=== PATIENT | male | born 1995 | race Caucasian/White ===

== ENCOUNTER 2021-09-29 12:20 | Emergency (ER) | payer SELFPAY ==
[~2021-09-29] VITALS: Ht 175.3 cm; Wt 72.7 kg
[2021-09-29 12:45] VITALS: TEMP 98.4
[2021-09-29] MEDS ORDERED: FLEXERIL 1010 MG/TAB PO (13:42)
[2021-09-29 14:15] VITALS: BP 117/79; PULSE 70
== END 2021-09-29 14:15 | disposition home or self-care (01) ==
LOC: COL.ER 12:20
DX: R05.9 Cough, unspecified (principal)

== ENCOUNTER 2021-10-20 14:03 | Emergency (ER) | payer SELFPAY ==
[~2021-10-20] VITALS: Ht 175.3 cm; Wt 72.7 kg
[~2021-10-20 14:03] MED LIST: FLEXERIL 1010 MG/TAB PO
[2021-10-20 14:13] VITALS: TEMP 98.1
[2021-10-20 15:53] LABS: BASO % 0.5 % (0.0-2.0); EOS # 0.1 K/mm3 (0.0-0.7); EOS % 1.6 % (0.0-4.0); GRAN # 4.2 K/mm3 (1.4-6.5); GRAN % 67.1 % (42.2-75.2); HEMATOCRIT 44.7 % (42.0-52.0); HEMOGLOBIN 15.1 g/dl (13.5-18.0); LYMPH # 1.6 K/mm3 (1.2-3.4); LYMPH % 25.7 % (20.0-51.0); MEAN CELL VOLUME 91 fl (80.0-100.0); MEAN CORPUSCULAR HEMOGLOBIN 31 pg (27-31); MEAN CORPUSCULAR HGB CONC 34 g/dl (33.0-37.0); MEAN PLATELET VOLUME 9.5 fl (7.4-10.4); MONO # 0.3 K/mm3 (0.1-0.6); MONO % 4.6 % (1.7-9.3); PLATELET COUNT 233 K/mm3 (130-400); REDCELL DISTRIBUTION WIDTH-CV 12.2 % (11.5-14.5)
[2021-10-20 16:12] LABS: ALBUMIN 4.5 gm/dL (3.5-5.0); BILIRUBIN,TOTAL 0.5 mg/dL (0.2-1.2); C-REACTIVE PROTEIN 0.04 mg/dL (0.00-0.50); CALCIUM 9.1 mg/dL (8.4-10.2); CREATININE, serum 0.99 mg/dL (0.72-1.25); POTASSIUM 4.3 mmol/L (3.5-4.5); TOTAL PROTEIN 7.7 gm/dL (6.2-8.1)
[2021-10-20 17:36] VITALS: BP 110/80; PULSE 71
== END 2021-10-20 16:46 | disposition home or self-care (01) ==
LOC: COL.ER 14:03
PROVIDERS: Family Medicine
DX: R10.13 Epigastric pain (principal)

== ENCOUNTER → 2021-12-19 | Outpatient (CLI) | payer OTHER | LOC: COL.RAD 07:02 | DX: R10.13 Epigastric pain (principal); R07.89 Other chest pain ==

== ENCOUNTER → 2022-03-06 | Outpatient (CLI) | payer OTHER | LOC: COL.RAD 14:47 | DX: R10.84 Generalized abdominal pain (principal) | CPT/HCPCS: Q9967 ==